=== PATIENT | male | born 1960 | race African-American/Black ===

== ENCOUNTER 2021-03-18 13:57 | Inpatient (IN) | payer MEDICAID ==
[~2021-03-18] VITALS: Ht 167.6 cm; Wt 49.4 kg
[2021-03-18 16:40] LABS: BASOPHILS % 0.4 % (0.0-2.0); EOSINOPHILS % 0.6 % (0.0-5.0); HEMATOCRIT. 33.7 % (42.0-52.0); HEMOGLOBIN. 11.9 g/dL (14.0-18.0); LYMPHOCYTES % 54.3 % (20.0-50.0); MEAN CORPUSCULAR HEMOGLOBIN 35.4 pg (28.0-32.0); MEAN CORPUSCULAR VOLUME 100.3 fL (80.0-94.0); MEAN PLATELET VOLUME 9.6 fl (7.4-10.4); NEUTROPHILS % 41.7 % (40.0-76.0); PLATELET 63 x1000/uL (130-400); RED BLOOD CELL COUNT 3.37 mill/uL (4.7-6.1); RED CELL DISTRIBUTION WIDTH 12.6 % (11.6-14.6)
[2021-03-18] MEDS ORDERED: ACETAMINOPHEN 325MG TABLET PO ONE (16:45)
[2021-03-18] MEDS ORDERED: ASPIRIN 325MG EC TABLET PO ONE (17:00)
[2021-03-18 17:13] LABS: CHLORIDE 105 mEq/L (98-107)
[2021-03-18 17:20] LABS: ETHANOL BLOOD 441 mg/dL
[2021-03-18] MEDS ORDERED: DIPHENHYDRAMINE 50MG/ML VIAL IV PRN (18:45)
[2021-03-18] MEDS ORDERED: IPRATROPIUM/ALBUTEROL 0.5-3(2.5)MG/3ML NEB HHN PRN (18:45)
[2021-03-18] MEDS ORDERED: CLONIDINE 0.1MG TABLET PO PRN (18:45)
[2021-03-18] MEDS: MORPHINE SULFATE 2 MG/ML CPJ (NOT FOR IM USE) IV PRN (21:16)
[2021-03-18] MEDS: ONDANSETRON HCL 4MG/2ML INJ IV PRN ×2 (21:17→21:49)
[2021-03-18 21:30] VITALS: BP 125/78
[2021-03-19] VITALS: BP 90/57
[2021-03-19] MEDS ORDERED: DEXTROSE 50% WATER 50ML SYRINGE IV PRN (01:15)
[2021-03-19 04:00] VITALS: BP 91/56
[2021-03-19] MEDS: MORPHINE SULFATE 2 MG/ML CPJ (NOT FOR IM USE) IV PRN ×2 (04:16→09:38)
[2021-03-19 07:07] LABS: CHLORIDE 107 mEq/L (98-107)
[2021-03-19 07:09] LABS: BASOPHILS % 0.7 % (0.0-2.0); EOSINOPHILS % 1.4 % (0.0-5.0); LYMPHOCYTES % 57.2 % (20.0-50.0); MEAN CORPUSCULAR HEMOGLOBIN 35.1 pg (28.0-32.0); MEAN CORPUSCULAR VOLUME 101.9 fL (80.0-94.0); MEAN PLATELET VOLUME 9.4 fl (7.4-10.4); MONOCYTES % 4.1 % (2.0-8.0); NEUTROPHILS % 36.6 % (40.0-76.0); PLATELET 52 x1000/uL (130-400); RED BLOOD CELL COUNT 3.14 mill/uL (4.7-6.1); RED CELL DISTRIBUTION WIDTH 13.1 % (11.6-14.6)
[2021-03-19] MEDS: BLOOD SUGAR DIAGNOSTIC STRIP TEST SCH ×4 (07:20→21:00)
[2021-03-19 07:21] LABS: LDL CHOLESTEROL 67 mg/dL (5-100)
[2021-03-19 07:26] LABS: HDL CHOLESTEROL 30 mg/dL (40-59)
[2021-03-19] MEDS: INSULIN LISPRO 100 UNITS/ML SUBCUT SCH ×4 (07:40→20:59)
[2021-03-19 08:00] VITALS: BP 104/69
[2021-03-19] MEDS ORDERED: PNEUMOCOCCAL 23-VAL P-SAC VAC 0.5 ML IM ONE (08:00)
[2021-03-19 10:05] LABS: T4 FREE 0.92 ng/dL (0.76-1.46)
[2021-03-19 12:00] VITALS: BP 103/72
[2021-03-19] MEDS ORDERED: LORAZEPAM 2MG/ML CPJ IV PRN (13:30)
[2021-03-19] MEDS ORDERED: CHLORDIAZEPOXIDE 25MG CAPSULE PO SCH (14:00)
[2021-03-19] MEDS ORDERED: FOLIC ACID 1 MG, THIAMINE HCL 100 MG, MVI, ADULT NO.1 10 ML in DEXTROSE 5% WATER 1,000 ML IV ONE (14:30)
[2021-03-19] MEDS: CHLORDIAZEPOXIDE 10MG CAPSULE PO SCH ×2 (15:15→21:23)
[2021-03-19] MEDS: CHLORDIAZEPOXIDE 5 MG CAPSULE PO SCH ×2 (15:15→21:23)
[2021-03-19 16:00] VITALS: BP 106/67
[2021-03-19 20:00] VITALS: BP 120/86
[2021-03-20 00:24] VITALS: BP 103/64
[2021-03-20 04:00] VITALS: BP 107/77
[2021-03-20] MEDS: CHLORDIAZEPOXIDE 10MG CAPSULE PO SCH ×2 (06:15→14:00)
[2021-03-20] MEDS: CHLORDIAZEPOXIDE 5 MG CAPSULE PO SCH ×2 (06:15→14:00)
[2021-03-20] MEDS: BLOOD SUGAR DIAGNOSTIC STRIP TEST SCH ×3 (06:24→17:20)
[2021-03-20] MEDS: INSULIN LISPRO 100 UNITS/ML SUBCUT SCH ×3 (07:09→17:20)
[2021-03-20 07:54] VITALS: BP 109/75
[2021-03-20 11:47] VITALS: BP 98/68
[2021-03-20 15:56] VITALS: BP 114/80
== END 2021-03-20 16:35 | disposition home or self-care (01) | DRG 203 ==
LOC: ER 14:43 → 6WST 18:23 → ENRESERV 20:45
PROVIDERS: ADMIT Internal Medicine; ATTEND Internal Medicine
DX: M94.0 Chondrocostal junction syndrome [Tietze] (principal); R56.9 Unspecified convulsions; E11.9 Type 2 diabetes mellitus without complications; R33.9 Retention of urine, unspecified; G89.29 Other chronic pain; F10.129 Alcohol abuse with intoxication, unspecified; I10 Essential (primary) hypertension; Y90.9 Presence of alcohol in blood, level not specified; Z79.84 Long term (current) use of oral hypoglycemic drugs; Z83.3 Family history of diabetes mellitus
CPT/HCPCS: 36415; 71045; 74176; 80053; 80061; 80320; 82962; 83036; 83880; 84439; 84443; 84481; 84484; 85025; 90732; 93005; 93306; 93970; 99285; J2270; J2405; J3411; J3490; J7070; G0480